=== PATIENT | female | born 1950 | race Caucasian/White ===

== ENCOUNTER → 2018-11-01 | Outpatient (CLI) | payer MEDICARE, OTHER ==
[~2018-11-01] MED LIST: CLAR500 PO; LEVSOD50 PO; LISI10; LORA10ER PO; Norco 5-325 Ta1 EACH PO; RANI150 PO; [UNRECOGNIZED DRUG - CODE]; [UNRECOGNIZED DRUG - OTHER]
[2018-11-01 18:26] LABS: Free Thyroxine 0.98 ng/dL (0.70-1.60)
[2018-11-01 18:29] LABS: Thyroid Stimulating Hormone 2.33 uIU/mL (0.360-4.800)
== END | disposition home or self-care (01) ==
LOC: LAB SHORT 14:00 → LAB 14:00
PROVIDERS: Hospitalist
DX: E03.9 Hypothyroidism, unspecified (principal)
CPT/HCPCS: 84439; 84443

== ENCOUNTER → 2021-05-21 | Outpatient (CLI) | payer MEDICARE, OTHER ==
[2021-05-21 19:23] LABS: Free Thyroxine 0.96 ng/dL (0.70-1.60); Thyroid Stimulating Hormone 1.81 uIU/mL (0.360-4.800); Triiodothyronine, Free 1.81 pg/mL (2.18-3.98)
[2021-05-21 21:19] LABS: Alanine Aminotransfer (ALT/SGP 21 U/L (12-78); Albumin, Blood 3.6 g/dL (3.4-5.0); Albumin/Globulin Ratio 1.3 (0.8-1.8); Alk Phos 47 U/L (50-136); Anion Gap 5 mmol/L (6-16); Aspartate Aminotrans (AST/SGOT 15 U/L (12-37); Bilirubin, Total 0.4 mg/dL (0.1-1.0); Blood Urea Nitrogen 31 mg/dL (8-24); Bun/Creatinine Ratio 46.3 (12.0-20.0); CO2, Blood 28 mmol/L (21-32); Calcium, Blood 8.7 mg/dL (8.5-10.1); Chloride, Blood 109 mmol/L (98-108); Creatinine, Blood 0.67 mg/dL (0.40-1.00); Globulin, Blood 2.8 g/dL (2.2-4.0); Glomerular Filtration Rate >60 (60-); Glucose, Blood 98 mg/dL (70-99); Potassium, Blood 4.2 mmol/L (3.5-5.5); Sodium, Blood 142 mmol/L (136-145); Total Protein, Blood 6.4 g/dL (6.4-8.2)
== END | disposition home or self-care (01) ==
LOC: LAB 16:50 → LAB SHORT 16:50
PROVIDERS: Hospitalist
DX: R00.2 Palpitations (principal)
CPT/HCPCS: 80053; 84439; 84443; 84481

== ENCOUNTER 2021-06-21 09:18 | Day surgery (SDC) | payer MEDICARE, OTHER ==
[~2021-06-21] VITALS: Ht 162.6 cm; Wt 55.2 kg
[2021-06-21] MEDS ORDERED: METO25ER PO (10:08)
--- NOTE | 2021-06-21 10:16 | NUR ---
06/21/21 1016 CARMEN ELISE PT STATES SHE HAD A SLEEP STUDY YEARS AGO WHEN SHE WEIGHED MORE AND WAS SIAGNOISED WITH A MILD CASE OF SLEEP APNEA BUT DID NOT NEED TO USE A CPAP MACHINE AND HAS NO COMPLAINTS OF RESPIRATORY OR SLEEPING PROBLEMS.
== END 2021-06-21 11:43 | disposition home or self-care (01) ==
LOC: ORSCSDS 09:18
PROVIDERS: Internal Medicine Gastroenterology
PROC: 0DJD8ZZ Inspection of Lower Intestinal Tract, Via Natural or Artificial Opening Endoscopic (ICD-10-PCS; principal; 2021-06-21 10:45)
DX: Z12.11 Encounter for screening for malignant neoplasm of colon (principal); Z86.010 Personal history of colon polyps; K57.30 Diverticulosis of large intestine without perforation or abscess without bleeding; Z80.0 Family history of malignant neoplasm of digestive organs; I10 Essential (primary) hypertension; E03.9 Hypothyroidism, unspecified; G47.30 Sleep apnea, unspecified; K64.8 Other hemorrhoids; K63.89 Other specified diseases of intestine; Z79.899 Other long term (current) drug therapy
CPT/HCPCS: J2704; J7120

== ENCOUNTER → 2021-08-22 | Outpatient (CLI) | payer MEDICARE, OTHER ==
[~2021-08-22] MED LIST changes: +METO25ER PO
[2021-08-22 09:06] LABS: Source, Urine Clean Catch
[2021-08-22 12:06] LABS: Appearance, Urine Cloudy (Clear); Bilirubin, Urine Neg (Neg); Blood, Urine 2+ (Neg); Color, Urine Yellow (P-Yellow); Glucose Qualitative, Urine Neg (Neg); Ketones, Urine Neg (Neg); Leukocyte Esterase, Urine Neg (Neg); Nitrite, Urine Neg (Neg); Protein, Urine 1+ (Neg); Specific Gravity, Urine 1.025 (1.003-1.022); Urobilinogen, Urine NORM (Normal)
[2021-08-22 12:31] LABS: Hyaline Casts 25-50 /lpf (0-2)
[2021-08-22 12:33] LABS: Bacteria Many /hpf; Red Blood Cells, Urine 0-2 /hpf (0-2); Squamous Epithelial Cells Not Seen /hpf (Few); Transitional Epithelial Cells Rare /hpf (0-Rare); White Blood Cells, Urine 0-2 /hpf (0-5)
== END | disposition home or self-care (01) ==
LOC: LAB SHORT 09:05 → LAB 09:05
PROVIDERS: Hospitalist
DX: R10.2 Pelvic and perineal pain (principal)
CPT/HCPCS: 81001; 87077; 87086; 87186

== ENCOUNTER → 2021-09-03 | Outpatient (CLI) | payer MEDICARE, OTHER ==
[2021-09-03 09:15] LABS: Source, Urine Clean Catch
[2021-09-03 12:14] LABS: Appearance, Urine Clear (Clear); Blood, Urine 2+ (Neg); Color, Urine Amber (P-Yellow); Glucose Qualitative, Urine Neg (Neg); Ketones, Urine Neg (Neg); Leukocyte Esterase, Urine Neg (Neg); Nitrite, Urine Pos (Neg); Protein, Urine Neg (Neg); Specific Gravity, Urine 1.015 (1.003-1.022); Urobilinogen, Urine 1+ (Normal)
[2021-09-03 12:29] LABS: Bilirubin, Urine 1+ (Neg)
[2021-09-03 12:33] LABS: Bacteria Few /hpf; Squamous Epithelial Cells Rare /hpf (Few); White Blood Cells, Urine 0-2 /hpf (0-5)
== END | disposition home or self-care (01) ==
LOC: LAB SHORT 09:13 → LAB 09:13
PROVIDERS: Hospitalist
DX: R30.0 Dysuria (principal)
CPT/HCPCS: 81001; 87086

== ENCOUNTER 2023-05-07 04:07 | Emergency (ER) | payer MEDICARE, OTHER ==
[~2023-05-07] VITALS: Ht 162.6 cm; Wt 57.6 kg
[2023-05-07 04:55] LABS: BASOPHILS ABSOLUTE AUTO 0.02 K/mm3 (0.00-0.23); BASOPHILS PERCENT AUTO 0 % (0-2); EOSINOPHILS ABSOLUTE AUTO 0.05 K/mm3 (0.00-0.68); EOSINOPHILS PERCENT AUTO 1 % (0-6); Hematocrit 40.1 % (33.0-51.0); Hemoglobin 13.4 g/dL (11.5-16.0); IMMATURE GRAN ABSOLUTE AUTO 0.02 K/mm3 (0.00-0.10); IMMATURE GRAN PERCENT AUTO 0 % (0-1); LYMPHOCYTES PERCENT AUTO 34 % (21-46); MONOCYTES ABSOLUTE AUTO 0.44 K/mm3 (0.16-1.47); MONOCYTES PERCENT AUTO 8 % (4-13); Mean Corpuscular HGB 28.9 pg (26.0-34.0); Mean Corpuscular HGB Conc 33.4 g/dL (31.5-36.5); Mean Corpuscular Volume 87 fL (80-100); Mean Platelet Volume 10.4 fL (9.1-12.4); NEUTROPHILS ABSOLUTE AUTO 2.99 K/mm3 (1.96-9.15); NEUTROPHILS PERCENT AUTO 56 % (41-73); Platelet Count 156 K/mm3 (150-400); RDW Coefficient Variation 14.1 % (11.7-14.2); RDW Standard Deviation 44.5 fL (35.1-46.3); Red Blood Cell Count 4.63 M/mm3 (3.80-5.20); White Blood Cell Count 5.32 K/mm3 (4.00-11.30)
[2023-05-07 05:01] LABS: Source, Urine Clean Catch
[2023-05-07 05:13] LABS: Appearance, Urine Clear (Clear); Bilirubin, Urine Neg (Neg); Blood, Urine 2+ (Neg); Glucose Qualitative, Urine Neg (Neg); Ketones, Urine 2+ (Neg); Leukocyte Esterase, Urine Neg (Neg); Nitrite, Urine Neg (Neg); Protein, Urine Neg (Neg); Urobilinogen, Urine NORM (Normal)
[2023-05-07 05:19] LABS: Color, Urine Pale Yellow (P-Yellow)
[2023-05-07 05:22] LABS: Bacteria Mod /hpf; Calcium Oxalate Crystals Few /hpf; Red Blood Cells, Urine 0-2 /hpf (0-2); Squamous Epithelial Cells Few /hpf (Few); White Blood Cells, Urine 0-2 /hpf (0-5)
[2023-05-07 05:45] LABS: Albumin, Blood 3.9 g/dL (3.4-5.0); Albumin/Globulin Ratio 1.1 (0.8-1.8); Bilirubin, Total 0.4 mg/dL (0.1-1.0); Bun/Creatinine Ratio 26.1 (12.0-20.0); Calcium, Blood 9.3 mg/dL (8.5-10.1); Creatinine, Blood 0.77 mg/dL (0.40-1.00); Globulin, Blood 3.5 g/dL (2.2-4.0); Potassium, Blood 3.6 mmol/L (3.5-5.5); Total Protein, Blood 7.4 g/dL (6.4-8.2)
[2023-05-07 07:00] VITALS: BP 145/68
== END 2023-05-07 06:59 | disposition home or self-care (01) ==
LOC: ER 04:07
PROVIDERS: Emergency Medicine
DX: N13.2 Hydronephrosis with renal and ureteral calculous obstruction (principal); E86.0 Dehydration; Z88.0 Allergy status to penicillin; Z88.2 Allergy status to sulfonamides; Z88.5 Allergy status to narcotic agent; Z79.899 Other long term (current) drug therapy; I10 Essential (primary) hypertension
CPT/HCPCS: 74177; 80053; 81001; 83690; 84484; 85025; 93005; 93010; 96361; 96374; 99284-25; J3010; J7030; Q9967

== ENCOUNTER 2023-09-30 06:33 | Day surgery (SDC) | payer MEDICARE ==
[~2023-09-30] VITALS: Ht 162.6 cm; Wt 58.8 kg
[~2023-09-30 06:33] MED LIST changes: +Balanced Salt Epinephrine Irrigation Solution 500 mL IR SCH; +Lidocaine HCl/Pf 1% 5 ML VIAL XX SCH; +Moxifloxacin HCL 0.5 MG/0.1 ML 0.4MLSYR LEFTEYE SCH; +NS 500 ML IV ONE; +PHENYLEPHRINE\\TROPICAMIDE\\TETRACAINE OPHTHALMIC DILATING SOLN LEFTEYE PRN; +Povidone-Iodine 450 DROP/30 ML Solution LEFTEYE SCH; +Triamcinolone Inj Susp 40 MG / ML 1ML Vial INJ SCH
[2023-09-30] MEDS ORDERED: Lidocaine HCl/Pf 1% 5 ML VIAL ONE (06:38)
[2023-09-30] MEDS ORDERED: Triamcinolone Inj Susp 40 MG / ML 1ML Vial ONE (06:38)
[2023-09-30] MEDS ORDERED: ALLERTEC (07:05)
[2023-09-30] MEDS ORDERED: TUMERIC (07:06)
[2023-09-30] MEDS ORDERED: ZINC (07:06)
[2023-09-30] MEDS ORDERED: PRESERVISION (07:06)
[2023-09-30] MEDS ORDERED: VITAMIN C (07:06)
[2023-09-30] MEDS ORDERED: GARLIC (07:07)
[2023-09-30] MEDS ORDERED: VITAMIN D5000 UNIT PO (07:07)
[2023-09-30] MEDS ORDERED: LIOT5 PO (07:08)
[2023-09-30] MEDS ORDERED: QUERCETIN (07:09)
[2023-09-30] MEDS ORDERED: NS 500 ML IV ONE (07:24)
--- NOTE | 2023-09-30 07:26 | NUR ---
09/30/23 0726 Park Lobo [phone] NAGA [id number]
[2023-09-30] MEDS ORDERED: Midazolam HCl 1MG / ML 2ML Vial ONE (07:35)
[2023-09-30] MEDS ORDERED: FentaNYL Citrate 50 MCG/ML 2 ML Injection ONE (07:35)
[2023-09-30] MEDS ORDERED: Tetracaine HCl 0.5% Opth Soln 15 ml LEFTEYE ONE (07:58)
[2023-09-30] MEDS ORDERED: Ondansetron HCl 2 MG / ML 2ML Vial ONE (08:01)
[2023-09-30 08:43] VITALS: BP 157/84
== END 2023-09-30 08:43 | disposition home or self-care (01) ==
LOC: ORSCSDS 06:33
PROVIDERS: Ophthalmology
PROC: 08RK3JZ Replacement of Left Lens with Synthetic Substitute, Percutaneous Approach (ICD-10-PCS; principal; 2023-09-30 08:00)
DX: H25.813 Combined forms of age-related cataract, bilateral (principal); G51.0 Bell's palsy; H53.009 Unspecified amblyopia, unspecified eye; Z79.899 Other long term (current) drug therapy
CPT/HCPCS: J2001; J2250; J2405; J3010; J3301; J7040; V2632

== ENCOUNTER 2023-10-07 06:44 | Day surgery (SDC) | payer MEDICARE ==
[~2023-10-07] VITALS: Ht 162.5 cm; Wt 59.1 kg
[~2023-10-07 06:44] MED LIST changes: +ALLERTEC; +GARLIC; +LIOT5 PO; +Lidocaine HCl/Pf 1% 5 ML VIAL ONE; -Moxifloxacin HCL 0.5 MG/0.1 ML 0.4MLSYR LEFTEYE SCH; +Moxifloxacin HCL 0.5 MG/0.1 ML 0.4MLSYR RIGHTEYE SCH; -PHENYLEPHRINE\\TROPICAMIDE\\TETRACAINE OPHTHALMIC DILATING SOLN LEFTEYE PRN; +PHENYLEPHRINE\\TROPICAMIDE\\TETRACAINE OPHTHALMIC DILATING SOLN RIGHTEYE PRN; +PRESERVISION; -Povidone-Iodine 450 DROP/30 ML Solution LEFTEYE SCH; +Povidone-Iodine 450 DROP/30 ML Solution RIGHTEYE SCH; +QUERCETIN; +TUMERIC; +Triamcinolone Inj Susp 40 MG / ML 1ML Vial ONE; +VITAMIN C; +VITAMIN D5000 UNIT PO; +ZINC
[2023-10-07] MEDS ORDERED: NS 500 ML IV ONE (07:12)
--- NOTE | 2023-10-07 07:13 | NUR ---
10/07/23 0713 Gail Taylor AT 0703 PLEDGET AT [id number]
[2023-10-07] MEDS ORDERED: Midazolam HCl 1MG / ML 2ML Vial ONE (07:56)
[2023-10-07 08:30] VITALS: BP 158/98
== END 2023-10-07 08:38 | disposition home or self-care (01) ==
LOC: ORSCSDS 06:44
PROVIDERS: Ophthalmology
PROC: 08RJ3JZ Replacement of Right Lens with Synthetic Substitute, Percutaneous Approach (ICD-10-PCS; principal; 2023-10-07 08:00)
DX: H25.811 Combined forms of age-related cataract, right eye (principal); Z96.1 Presence of intraocular lens; I10 Essential (primary) hypertension; G51.0 Bell's palsy; E03.9 Hypothyroidism, unspecified; Z79.899 Other long term (current) drug therapy
CPT/HCPCS: J2001; J2250; J3301; J7040; V2632

== ENCOUNTER → 2024-05-04 | Outpatient (CLI) | payer MEDICARE ==
[~2024-05-04] MED LIST changes: -Balanced Salt Epinephrine Irrigation Solution 500 mL IR SCH; -Lidocaine HCl/Pf 1% 5 ML VIAL ONE; -Lidocaine HCl/Pf 1% 5 ML VIAL XX SCH; -Moxifloxacin HCL 0.5 MG/0.1 ML 0.4MLSYR RIGHTEYE SCH; -NS 500 ML IV ONE; -PHENYLEPHRINE\\TROPICAMIDE\\TETRACAINE OPHTHALMIC DILATING SOLN RIGHTEYE PRN; -Povidone-Iodine 450 DROP/30 ML Solution RIGHTEYE SCH; -Triamcinolone Inj Susp 40 MG / ML 1ML Vial INJ SCH; -Triamcinolone Inj Susp 40 MG / ML 1ML Vial ONE
== END ==
LOC: LAB SHORT 14:09 → LAB 14:09
DX: L30.9 Dermatitis, unspecified (principal)
CPT/HCPCS: 88305; 88312

== ENCOUNTER → 2024-09-05 | Outpatient (CLI) | payer MEDICARE ==
[2024-09-05 21:04] LABS: Bun/Creatinine Ratio 34.1 (12.0-20.0); Calcium, Blood 8.9 mg/dL (8.5-10.1); Creatinine, Blood 0.94 mg/dL (0.40-1.00); Percent Saturation 18.7 % (15.0-50.0); Potassium, Blood 4.5 mmol/L (3.5-5.5)
== END ==
LOC: LAB 19:33 → LAB SHORT 19:33
PROVIDERS: Hospitalist
DX: D64.9 Anemia, unspecified (principal)
CPT/HCPCS: 80048; 82728; 83540; 83550